=== PATIENT | female | born 1970 ===

== ENCOUNTER 2021-01-11 12:45 | Inpatient (IN) | payer OTHER ==
[~2021-01-11] VITALS: Ht 157.5 cm; Wt 81.6 kg
[2021-01-11] MEDS ORDERED: NORFLEX (17:13)
[2021-01-11] MEDS ORDERED: LODINE300 MG PO (17:14)
[2021-01-12] MEDS ORDERED: NORFLEX100MG (13:17)
== END 2021-01-14 14:32 | disposition home or self-care (01) | DRG 743 ==
LOC: EDSTATUS 12:45 → ADM 12:45 → O/R 01-12 08:45 → OB/GYN 01-12 12:45
PROVIDERS: ADMIT Specialist; ATTEND Specialist
PROC: 0UT2FZZ Resection of Bilateral Ovaries, Via Natural or Artificial Opening With Percutaneous Endoscopic Assistance (ICD-10-PCS; 2021-01-12)
PROC: 0UT7FZZ Resection of Bilateral Fallopian Tubes, Via Natural or Artificial Opening With Percutaneous Endoscopic Assistance (ICD-10-PCS; 2021-01-12)
PROC: 0UT9FZZ Resection of Uterus, Via Natural or Artificial Opening With Percutaneous Endoscopic Assistance (ICD-10-PCS; principal; 2021-01-12 20:15)
DX: D25.1 Intramural leiomyoma of uterus (principal); N72 Inflammatory disease of cervix uteri; N83.01 Follicular cyst of right ovary; N83.02 Follicular cyst of left ovary